=== PATIENT | female | born 1985 | race Caucasian/White ===

== ENCOUNTER 2019-06-21 15:52 | Emergency (ER) | payer MEDICAID, SELFPAY ==
[2019-06-21 16:01] VITALS: BP 118/55; PULSE 70; RESP 16; TEMP 37.2; O2SAT 100
--- NOTE | 2019-06-21 16:09 | ED.DENTAL ---
HPI - Dental/Oral General Stated complaint: swollen gums/tooth ache Time Seen by Provider: 06/21/19 16:09 Source: patient History of Present Illness HPI Narrative: Patient presents with chronic tooth problems. Patient states she has had increased pain to her left upper teeth for the past 2 days. Patient has missed work and has an appointment 2 weeks with Maite emmanuel and Jono Bullock. No trouble swallowing no drooling no fever. MD Complaint: tooth pain Location: Tooth # (14,15,16) Related Data Allergies Allergy/AdvReac Type Severity Reaction Status Date / Time tramadol Allergy Unknown Verified 06/21/19 16:10 Review of Systems Review of Systems: Narrative: CONSTITUTIONAL: Denies fever, chills, or sweats. EYES: Denies visual changes, redness, or discharge. ENT: Denies rhinorrhea, congestion, sore throat, or otalgia. NO FEVER. NO JAW SWELLING. NO NECK SWELLING. NO LIMITATION WITH SPEAKING OR SWALLOWING. HAS A HISTORY OF DENTAL CARIES. HAS NOT SEEN A DENTIST RECENTLY. CARDIOVASCULAR: Denies chest pain, palpitations, or edema. RESPIRATORY: Denies cough or dyspnea. GASTROINTESTINAL: Denies abdominal pain, nausea, vomiting, or diarrhea. GENITOURINARY: Denies dysuria or hematuria. SKIN: Denies rash or itching. MUSCULOSKELETAL: Denies back pain, joint pain, or myalgia. NEUROLOGIC: Denies headache, numbness, or weakness. PSYCHIATRIC: Denies anxiety or depression. PMFSH Comments At time of signature, agree with nursing past medical, surgical, social and family history. There is no relevant family history pertinent to the presenting complaint Exam Narrative: Exam Narrative: GENERAL: Well-appearing, well-nourished, and in no acute distress. HEAD: Normocephalic, atraumatic. EYES: PERRLA and EOMI. ENT: Nares clear, no rhinorrhea or epistaxis. Mucous membranes moist. NO DUANE APICAL SWELLING, TOOTH TENDER TO PALPATION. NO FACIAL SWELLING. NO TRISMUS. ABLE TO OPEN MOUTH FULLY. NO NECK SWELLING OR MATTHIAS'S ANGINA. NO ABSCESS TO BE DRAINED. no drooling, trismus, facial asymmetry or significant neck swelling NECK: Supple. CHEST: Clear to auscultation. No respiratory distress. HEART: Regular rate and rhythm. No murmur heard. Normal peripheral pulses. ABDOMEN: Soft, nontender, nondistended, normal active bowel sounds. EXTREMITIES: Normal range of motion. No edema. SKIN: Warm, dry, no rash. NEURO: No focal deficits. Alert and oriented x3. Bruce Coma Scale Eye Opening: Spontaneous 4 Lorraine Coma Scale Motor: Obeys Commands 6 Lorraine Coma Scale Verbal: Oriented 5 Lorraine Coma Scale Total 15 Course Vital Signs Vital signs: Vital Signs Temperature 37.2 C 06/21/19 16:01 Pulse Rate 70 06/21/19 16:01 Respiratory Rate 16 06/21/19 16:01 Blood Pressure 118/55 L 06/21/19 16:01 Pulse Oximetry 100 06/21/19 16:01 Temperature 37.2 C 06/21/19 16:01 Pulse Rate 70 06/21/19 16:01 Respiratory Rate 16 06/21/19 16:01 Blood Pressure 118/55 L 06/21/19 16:01 Pulse Oximetry 100 06/21/19 16:01 MDM - Dental/Oral Differential Diagnosis Differential diagnosis: Likely gingival abscess, dental caries, toothache, dental abscess, fracture of tooth and aphthous ulcer Critical Care Time Critical Care Time Critical Care Time: No Discharge Plan Discharge Clinical Impression: Chronic dental pain Patient Disposition: Home, Self-Care Condition: Stable Instructions: Antibiotic Form Additional Instructions: Avoid temperature extremes May apply heat or ice to the face Gentle brushing and flossing Antibiotic as directed Tylenol for lesser pain Use ibuprofen regularly Use the medication as provided for severe pain--caution each tablet contains 325 mg of Tylenol--the maximum dose of Tylenol is 4000 mg in 24 hours. This medication may cause constipation consider starting a laxative at this time Follow-up with the dentist as soon as possible--see the list provided -If you have any worsening of symptoms or any other con
== END 2019-06-21 16:15 | disposition home or self-care (01) ==
PROVIDERS: Emergency Provider Nurse Practitioner Family
DX: G89.29 Other chronic pain (principal); K08.89 Other specified disorders of teeth and supporting structures
CPT/HCPCS: 99213; G0463

== ENCOUNTER 2020-02-24 10:10 | Emergency (ER) | payer OTHER, SELFPAY ==
[2020-02-24 10:20] VITALS: BP 112/58; PULSE 64; RESP 20; TEMP 37; O2SAT 98
--- NOTE | 2020-02-24 10:28 | ED.GENADULT ---
HPI - General Adult General Chief complaint: Dental/Oral Stated complaint: tooth pain Time Seen by Provider: 02/24/20 10:28 Source: patient and RN notes reviewed Mode of arrival: ambulatory Limitations: no limitations History of Present Illness HPI narrative: 34-year-old female presents with complaints of dental pain for the past 2 days. Symptoms increased with redness and swelling noted around gums this morning. Ibuprofen, last on 02/23/20 at bedtime with some relief. Denies any drainage. No fever. No jaw swelling. No neck swelling. No limitation with speaking or swallowing. Has history of dental caries, needs upper teeth removed unable to afford. Has not seen a dentist recently. No dental trauma. No oral lesions. Exacerbating factors consist of chewing, eating and drinking cold items. Relieving factors not eating cold items, Ibuprofen, and warm items. No dentures or bridges. Tolerating liquids well. LMP 02/22/20. Remains active. The patient reports she have not been diagnosed with COVID-19. The patient reports she is not waiting for the results of a COVID-19 lab test. The patient reports she do not have chills, weakness, or fatigue. The patient reports she do not have a new or worsening cough or shortness of breath. Denies chest pain. The patient reports she do not have any rhinorrhea, congestion, sore throat, loss of taste, nausea, vomiting, abdominal pain, and diarrhea. Tolerating po intake well. Denies recent traveling. Denies concerns for COVID-19 or exposures been home with limited outdoor exposure except for essential household needs and return home. At this time, patient is not suspected of having COVID-19. Some parts of this dictation were generated by voice recognition software and may contain typographical and/or grammatical inaccuracies. Related Data Allergies Allergy/AdvReac Type Severity Reaction Status Date / Time tramadol Allergy Mild Rash Verified 02/24/20 10:31 Review of Systems Review of Systems: Narrative: CONSTITUTIONAL: Denies fever, chills, sweats. EYES: Denies visual changes, redness, discharge. ENT: Denies rhinorrhea, congestion, sore throat, otalgia. Complains of LT upper dental pain. CARDIOVASCULAR: Denies chest pain, palpitations, edema. RESPIRATORY: Denies dyspnea, wheezing, cough. GASTROINTESTINAL: Denies abdominal pain, nausea, vomiting, diarrhea. GENITOURINARY: Denies dysuria, hematuria, abnormal discharge. SKIN: Denies rash or itching. MUSCULOSKELETAL: Denies acute back pain, joint pain, or myalgia. NEUROLOGIC: Denies numbness or focal weakness. PSYCHIATRIC: Denies anxiety or depression. All systems reviewed & are unremarkable except as noted in HPI and below. [facility] Past Medical History Medical History (Updated 02/24/20 @ 11:32 by BERE Stafford) No significant past medical history Surgical History Surgical History (Updated 02/24/20 @ 11:32 by BERE Stafford) History of loop electrosurgical excision procedure (LEEP) due to precancerous cells History of removal of cyst from LY wrist Family History Family History (Updated 02/24/20 @ 11:32 by BERE Stafford) Father , due to motorcycle accident No problems noted. Mother Diabetes mellitus Social History Social History (Updated 02/24/20 @ 11:33 by BERE Stafford) Smoking packs per day: 0.25 Smoking cigarettes per day: 5.0 Years smoked: 14 Smoking pack-years: 3.50 Smoking status: Current every day smoker Tobacco type: cigarettes Second hand tobacco smoke exposure: Yes Alcohol intake: never Substance use: never Living arrangements: with family Occupation/Education: unemployed Gender identity (if verbalized by the patient): Female Sexual Orientation (if Verbalized by the Patient): Straight or Heterosexual Comments At time of signature, agree with nurse past medical, surgical, social, and family history. There is no relevan
== END 2020-02-24 10:40 | disposition home or self-care (01) ==
PROVIDERS: Emergency Provider Nurse Practitioner Family; PCP Family Medicine
DX: K04.7 Periapical abscess without sinus (principal); F17.210 Nicotine dependence, cigarettes, uncomplicated
CPT/HCPCS: 99213; G0463